=== PATIENT | male | born 1995 | race Caucasian/White ===

== ENCOUNTER 2021-10-27 12:50 | Inpatient (IN) ==
[2021-10-27 13:49] LABS: ABS Eosinophils 0.1 10^3/ul (0-0.6); ABS Lymphocytes 1.5 10^3/ul (1.0-4.8); ABS Monocytes 0.4 10^3/ul (0-0.8); ABS Neutrophils 3.3 10^3/ul (1.5-7.7); Eosinophil % 1.8 %; Hematocrit 44 % (42-52); Hemoglobin 14.8 g/dL (14.0-18.0); Lymphocyte % 27.9 %; Mean Corpuscular HGB Conc 34 g/dL (31-36); Mean Corpuscular Hemoglobin 28 pg (27-31); Mean Corpuscular Volume 84 fL (80-94); Mean Platelet Volume 9.5 fL (7.4-10.4); Nucleated Red Blood Cells % 0.1; Platelet Count 217 10^3/uL (150-450); Red Blood Count 5.26 10^6 /uL (4.18-5.48); Red Cell Distribution Width 13 % (10-15); White Blood Count 5.4 10^3/uL (3.5-10.8)
[2021-10-27 14:01] LABS: ALT 20 U/L (7-52); AST 15 U/L (13-39); Acetaminophen < 15 mcg/mL; Albumin 4.5 g/dL (3.2-5.2); Alcohol, S < 13 mg/dL (<13); Alkaline Phosphatase 46 U/L (35-149); Anion Gap 5 mmol/L (2-11); Blood Urea Nitrogen 8 mg/dL (6-24); CO2 Carbon Dioxide 29 mmol/L (22-32); Calcium 9.6 mg/dL (8.6-10.3); Chloride 105 mmol/L (101-111); Globulin 2.3 g/dL (2-4); Glucose 85 mg/dL (70-100); Potassium 3.8 mmol/L (3.5-5.0); Salicylate < 2.50 mg/dL (<30); Sodium 139 mmol/L (135-145); Total Protein 6.8 g/dL (6.4-8.9); eGFR CKD-EPI 122.3 (>60)
[2021-10-27 14:02] LABS: Urine Benzodiazepine Screen None Detected (None Detect); Urine Cannabinoids Screen None Detected (None Detect); Urine Opiates Screen None Detected (None Detect)
[2021-10-27 14:14] LABS: TSH Ultra Thyroid Stim Horm 0.59 mcIU/mL (0.34-5.60)
[2021-10-27 14:21] LABS: Valproic Acid < 13.0 mcg/mL (50-100)
[2021-10-27 14:59] LABS: Urine Appearance Clear; Urine Bilirubin Negative (Negative); Urine Blood Negative (Negative); Urine Color Yellow; Urine Glucose Negative (Negative); Urine Ketones Negative (Negative); Urine Nitrite Negative (Negative); Urine Protein Negative (Negative); Urine Specific Gravity 1.012 (1.002-1.030); Urine Urobilinogen Negative (Negative)
[2021-10-27] MEDS ORDERED: LORazepam 2 mg VIAL 1 ml IM ONE (16:25)
[2021-10-27] MEDS ORDERED: Lorazepam PYXIS KEY PRN (16:25)
[2021-10-27] MEDS ORDERED: Haloperidol 5 mg/ml SDV IV/IM 5 MG/ML AMP IM ONE (18:00)
[2021-10-27] MEDS ORDERED: diphenhydraMINE PO* 50 MG Q8H PRN AGITATION or INSOMNIA PO (19:31)
[2021-10-27] MEDS ORDERED: Al Hydrox/Mg Hydrox/Simet LIQ 30 ML UDC PO PRN (19:31)
[2021-10-28 08:23] LABS: HDL Cholesterol 32.4 mg/dL
[2021-10-28] MEDS: Vitamin THERAPEUTIC TAB PO SCH (11:17)
[2021-10-28] MEDS ORDERED: Albuterol HFA INHALER 8 gm MDI INH PRN (15:13)
[2021-10-28] MEDS: Buprenorphine 2 mg SL TAB SL SCH (16:18)
[2021-10-29] MEDS: Vitamin THERAPEUTIC TAB PO SCH (08:16)
[2021-10-29] MEDS: Amphetamine MIXED SALT 10mgTAB PO SCH (08:17)
[2021-10-29] MEDS: Buprenorphine 2 mg SL TAB SL SCH (08:18)
[2021-10-29] MEDS ORDERED: Ondansetron ODT 4 mg TAB 4 MG TAB ONE (08:26)
[2021-10-30] MEDS: Buprenorphine 2 mg SL TAB SL SCH (08:23)
[2021-10-30] MEDS: Vitamin THERAPEUTIC TAB PO SCH (08:24)
[2021-10-30] MEDS: Amphetamine MIXED SALT 10mgTAB PO SCH (08:24)
[2021-10-30] MEDS: Nicotine Lozenge mini 4 MG LOZNG.MINI MT PRN ×2 (13:00→23:20)
[2021-10-31] MEDS: Nicotine Lozenge mini 4 MG LOZNG.MINI MT PRN (03:53)
[2021-10-31] MEDS: Amphetamine MIXED SALT 10mgTAB PO SCH (07:29)
[2021-10-31] MEDS: Vitamin THERAPEUTIC TAB PO SCH (07:30)
[2021-10-31 07:47] VITALS: BP 109/63
[2021-10-31] MEDS: Buprenorphine 2 mg SL TAB SL SCH (07:48)
== END 2021-10-31 12:28 | disposition home or self-care (01) | DRG 750 ==
LOC: ED 12:50 → BSU 18:54
PROVIDERS: ADMIT Psychiatry & Neurology Addiction Psychiatry; ATTEND Student in an Organized Health Care Education/Training Program

== ENCOUNTER 2021-11-09 19:31 | Inpatient (IN) ==
[2021-11-09 21:21] LABS: Urine Appearance Clear; Urine Bilirubin Negative (Negative); Urine Blood Negative (Negative); Urine Color Yellow; Urine Glucose Negative (Negative); Urine Ketones Negative (Negative); Urine Nitrite Negative (Negative); Urine Protein Negative (Negative); Urine Specific Gravity 1.009 (1.002-1.030); Urine Urobilinogen Positive (Negative)
[2021-11-09 21:26] LABS: Urine Benzodiazepine Screen None Detected (None Detect); Urine Cannabinoids Screen None Detected (None Detect); Urine Opiates Screen None Detected (None Detect)
[2021-11-09] MEDS ORDERED: chlorproMAZINE TAB 50 MG Q6H PRN AGITATION PO (23:00)
[2021-11-09] MEDS ORDERED: Al Hydrox/Mg Hydrox/Simet LIQ 30 ML UDC PO PRN (23:14)
[2021-11-09] MEDS ORDERED: Albuterol HFA INHALER 8 gm MDI INH PRN (23:15)
[2021-11-10] MEDS: Vitamin THERAPEUTIC TAB PO SCH (10:46)
[2021-11-10] MEDS: Nicotine PATCH 21 MG/24 HR PATCH TRANSDERM SCH (10:47)
[2021-11-10] MEDS ORDERED: Albuterol HFA INHALER 8 gm MDI INH PRN (10:49)
[2021-11-11 07:59] LABS: ABS Eosinophils 0.1 10^3/ul (0-0.6); ABS Lymphocytes 2.1 10^3/ul (1.0-4.8); ABS Monocytes 0.4 10^3/ul (0-0.8); ABS Neutrophils 2.7 10^3/ul (1.5-7.7); Eosinophil % 2.2 %; Hematocrit 49 % (42-52); Hemoglobin 16.1 g/dL (14.0-18.0); Lymphocyte % 38.7 %; Mean Corpuscular HGB Conc 33 g/dL (31-36); Mean Corpuscular Hemoglobin 28 pg (27-31); Mean Corpuscular Volume 84 fL (80-94); Mean Platelet Volume 9.8 fL (7.4-10.4); Platelet Count 232 10^3/uL (150-450); Red Blood Count 5.79 10^6 /uL (4.18-5.48); Red Cell Distribution Width 13 % (10-15); White Blood Count 5.3 10^3/uL (3.5-10.8)
[2021-11-11 08:33] LABS: HDL Cholesterol 38.7 mg/dL
[2021-11-11 08:35] LABS: ALT 39 U/L (7-52); Acetaminophen < 15 mcg/mL; Albumin 4.5 g/dL (3.2-5.2); Albumin/Globulin Ratio 1.6 (1-3); Alcohol, S < 13 mg/dL (<13); Alkaline Phosphatase 53 U/L (35-149); Blood Urea Nitrogen 10 mg/dL (6-24); CO2 Carbon Dioxide 29 mmol/L (22-32); Calcium 9.5 mg/dL (8.6-10.3); Chloride 103 mmol/L (101-111); Globulin 2.9 g/dL (2-4); Glucose 91 mg/dL (70-100); Salicylate < 2.50 mg/dL (<30); Sodium 138 mmol/L (135-145); Total Protein 7.4 g/dL (6.4-8.9); eGFR CKD-EPI 128.2 (>60)
[2021-11-11 08:37] LABS: Anion Gap 6 mmol/L (2-11)
[2021-11-11 08:49] LABS: TSH Ultra Thyroid Stim Horm 0.21 mcIU/mL (0.34-5.60)
[2021-11-11 09:24] LABS: Potassium Redraw 4.5 mmol/L (3.5-5.0)
[2021-11-11] MEDS: Vitamin THERAPEUTIC TAB PO SCH (09:49)
[2021-11-11] MEDS: Nicotine PATCH 21 MG/24 HR PATCH TRANSDERM SCH (09:50)
[2021-11-11] MEDS: Nicotine GUM 2MG FRUIT FLAVOR PO PRN ×3 (12:07→16:30)
[2021-11-12] MEDS: Nicotine PATCH 21 MG/24 HR PATCH TRANSDERM SCH (07:30)
[2021-11-12] MEDS: Vitamin THERAPEUTIC TAB PO SCH (07:30)
[2021-11-12] MEDS: Nicotine GUM 2MG FRUIT FLAVOR PO PRN ×3 (07:39→18:03)
[2021-11-13] MEDS: Vitamin THERAPEUTIC TAB PO SCH (08:27)
[2021-11-13] MEDS: Nicotine PATCH 21 MG/24 HR PATCH TRANSDERM SCH ×2 (08:28→08:47)
[2021-11-13] MEDS: Nicotine GUM 2MG FRUIT FLAVOR PO PRN ×3 (08:48→18:16)
[2021-11-13] MEDS ORDERED: Paliperidone SUSTENNA 234 MG/1.5 ML IM ONE (10:09)
[2021-11-14] MEDS: Vitamin THERAPEUTIC TAB PO SCH (08:23)
[2021-11-14] MEDS: Nicotine PATCH 21 MG/24 HR PATCH TRANSDERM SCH (08:24)
[2021-11-14] MEDS: Nicotine GUM 2MG FRUIT FLAVOR PO PRN ×4 (08:27→21:07)
[2021-11-15] MEDS: Nicotine PATCH 21 MG/24 HR PATCH TRANSDERM SCH (08:22)
[2021-11-15] MEDS: Vitamin THERAPEUTIC TAB PO SCH (08:23)
[2021-11-15] MEDS: Nicotine GUM 2MG FRUIT FLAVOR PO PRN ×4 (08:29→19:07)
[2021-11-16 07:31] VITALS: BP 99/61
[2021-11-16] MEDS: Nicotine PATCH 21 MG/24 HR PATCH TRANSDERM SCH (08:19)
[2021-11-16] MEDS: Vitamin THERAPEUTIC TAB PO SCH (08:40)
[2021-11-16] MEDS ORDERED: Paliperidone SUSTENNA 156 MG/1 ML IM ONE (12:00)
[2021-11-16] MEDS: Nicotine GUM 2MG FRUIT FLAVOR PO PRN (13:15)
== END 2021-11-16 14:06 | disposition home or self-care (01) | DRG 750 ==
LOC: ED 19:31 → EDHOLD 22:00 → BSU 23:13
PROVIDERS: ADMIT Psychiatry & Neurology Psychiatry; ATTEND Psychiatry & Neurology Psychiatry

== ENCOUNTER 2022-05-20 20:48 | Inpatient (IN) ==
[2022-05-20] MEDS ORDERED: Vancomycin 1,000 MG in NS 0.9% 250 ml 250 ML IVPB ONE (23:17)
[2022-05-20 23:27] LABS: ABS Eosinophils 0.1 10^3/ul (0-0.6); ABS Lymphocytes 1.2 10^3/ul (1.0-4.8); ABS Neutrophils 4.4 10^3/ul (1.5-7.7); Eosinophil % 1.2 %; Hematocrit 36 % (42-52); Lymphocyte % 18.4 %; Mean Corpuscular HGB Conc 33 g/dL (31-36); Mean Corpuscular Hemoglobin 26 pg (27-31); Mean Corpuscular Volume 78 fL (80-94); Mean Platelet Volume 7.9 fL (7.4-10.4); Platelet Count 262 10^3/uL (150-450); Red Blood Count 4.66 10^6 /uL (4.18-5.48); Red Cell Distribution Width 16 % (10-15); White Blood Count 6.7 10^3/uL (3.5-10.8)
[2022-05-21 00:05] LABS: Albumin 3.6 g/dL (3.2-5.2); Albumin/Globulin Ratio 1.2 (1-3); C Reactive Protein 111.33 mg/L (<8.01); Calcium 8.7 mg/dL (8.6-10.3); Globulin 2.9 g/dL (2-4); Potassium 3.8 mmol/L (3.5-5.0); Total Bilirubin 0.4 mg/dL (0.2-1.0); Total Protein 6.5 g/dL (6.4-8.9); eGFR CKD-EPI 122.3 (>60)
[2022-05-21 01:19] LABS: Body Fluid WBC 49703 /mcL
[2022-05-21 01:26] LABS: Body Fluid Mono 1 %; Body Fluid Other Cells 1; Body Fluid Total Cells Counted 200
[2022-05-21 01:27] LABS: Body Fluid Color Red; Body Fluid Source Synovial Fluid
[2022-05-21 01:28] LABS: Body Fluid Appearance Bloody
[2022-05-21] MEDS ORDERED: NS 0.9% 1000 ml BAG 1,000 ML IV ONE (01:41)
[2022-05-21] MEDS ORDERED: Piperacillin/Tazobac ADVAN 3.375 GM in NS 0.9% 100 ml BAG 100 ML IV ONE (02:33)
[2022-05-21] MEDS ORDERED: Zosyn per Pharmacy NOTE FOLLOW UP SCH (03:00)
[2022-05-21] MEDS ORDERED: Vancomycin per Pharmacy 1 EA NOTE FOLLOW UP SCH (03:00)
[2022-05-21] MEDS: Acetaminophen IV 1 GM/100ML 1,000 MG/100 ML BAG IV SCH ×3 (03:20→22:18)
[2022-05-21] MEDS ORDERED: ZOSYN 3.375 GM Q8H per EXTENDED INFUSION IV SCH (07:30)
[2022-05-21] MEDS: ZOSYN 3.375 GM Q8H per EXTENDED INFUSION IV SCH ×3 (08:08→20:59)
[2022-05-21] MEDS ORDERED: Buffered Lidocaine 1% SYRIN 1 ml INTRADERM ONE (08:34)
[2022-05-21] MEDS ORDERED: Sodium Citrate/Citric Acid LIQ 15 ML UDC PO ONE (08:34)
[2022-05-21] MEDS ORDERED: Lactated Ringers 1000 ml BAG 1,000 ML IV SCH (09:00)
[2022-05-21] MEDS: Vancomycin 1,250 MG in NS 0.9% 250 ml 250 ML IVPB SCH ×3 (12:31→23:41)
[2022-05-21] MEDS ORDERED: Naloxone Nasal Spray 4 MG/0.1 ML NASAL.SPR INTRANASAL PRN (12:36)
[2022-05-21] MEDS ORDERED: Senna TAB 8.6 mg TAB PO PRN (12:37)
[2022-05-21] MEDS ORDERED: Polyethylene Glycol 3350 17 GM PACKET PO PRN (12:37)
[2022-05-21] MEDS ORDERED: Lidocaine 2% PF 5 ML VIAL ONE ×2 (12:55→13:35)
[2022-05-21] MEDS ORDERED: fentaNYL 100 mcg/2 ml 50 MCG/ML VIAL ONE ×2 (12:55→13:34)
[2022-05-21] MEDS ORDERED: Propofol 10 MG/ML 20 ML BTL ONE (12:55)
[2022-05-21] MEDS ORDERED: Midazolam 2 mg/2 ml VIAL 1 mg/ml 2 ml VIAL (2 mg) ONE ×2 (12:56→13:35)
[2022-05-21] MEDS ORDERED: Bupivacaine 0.5% SDV PF 30ML VIAL ONE (13:13)
[2022-05-21] MEDS ORDERED: Dexamethasone IV 4 MG/ML VIAL 1 ml VIAL ONE (14:20)
[2022-05-21] MEDS ORDERED: Ondansetron 4 mg VIAL 2 MG/ML 2 ml VIAL ONE (14:20)
[2022-05-21] MEDS ORDERED: Prochlorperazine 5 mg/ml 2 ml VIAL (10 mg) IV PRN (14:36)
[2022-05-21] MEDS ORDERED: Naloxone 0.4 mg VIAL 0.4 mg/ml 1 ml VIAL IV PRN (14:36)
[2022-05-21] MEDS ORDERED: fentaNYL 100 mcg/2 ml 50 MCG/ML VIAL IV PRN (14:36)
[2022-05-21] MEDS ORDERED: Ondansetron 4 mg VIAL 2 MG/ML 2 ml VIAL IV PRN (14:36)
[2022-05-21] MEDS ORDERED: Acetaminophen IV 1 GM/100ML 1,000 MG/100 ML BAG IV ONE (14:36)
[2022-05-21] MEDS ORDERED: HYDROmorphone 1 MG/1 ML SYRINGE IV SLOW PU ONE (20:32)
[2022-05-21 23:20] LABS: Hepatitis B Surface Antigen Nonreactive (Nonreactive)
[2022-05-21 23:26] LABS: HIV 4th Generation Nonreactive (Nonreactive)
[2022-05-21 23:26] LABS: Hepatitis A Ab IgM Negative (Negative)
[2022-05-21 23:27] LABS: Hepatitis B Core IgM Nonreactive (Nonreactive)
[2022-05-22 01:48] LABS: Hepatitis C Antibody Reactive (Negative)
[2022-05-22] MEDS: ZOSYN 3.375 GM Q8H per EXTENDED INFUSION IV SCH ×3 (05:36→20:50)
[2022-05-22] MEDS: Acetaminophen IV 1 GM/100ML 1,000 MG/100 ML BAG IV SCH ×3 (05:38→22:33)
[2022-05-22] MEDS ORDERED: Vancomycin Trough Check NOTE FOLLOW UP ONE (07:30)
[2022-05-22] MEDS: Nicotine PATCH 21 MG/24 HR PATCH TRANSDERM SCH (08:59)
[2022-05-22 09:08] LABS: ABS Eosinophils 0.1 10^3/ul (0-0.6); ABS Lymphocytes 1.3 10^3/ul (1.0-4.8); ABS Monocytes 1.1 10^3/ul (0-0.8); ABS Neutrophils 6.3 10^3/ul (1.5-7.7); Eosinophil % 0.8 %; Hematocrit 35 % (42-52); Hemoglobin 11.3 g/dL (14.0-18.0); Lymphocyte % 14.8 %; Mean Corpuscular HGB Conc 33 g/dL (31-36); Mean Corpuscular Hemoglobin 26 pg (27-31); Mean Corpuscular Volume 78 fL (80-94); Platelet Count 305 10^3/uL (150-450); Red Blood Count 4.41 10^6 /uL (4.18-5.48); Red Cell Distribution Width 16 % (10-15); White Blood Count 8.8 10^3/uL (3.5-10.8)
[2022-05-22 09:17] LABS: Albumin 3.4 g/dL (3.2-5.2); Calcium 8.6 mg/dL (8.6-10.3); Potassium 3.9 mmol/L (3.5-5.0); Total Bilirubin 0.4 mg/dL (0.2-1.0)
[2022-05-22 09:23] LABS: Albumin/Globulin Ratio 1.1 (1-3); Globulin 3.1 g/dL (2-4); Total Protein 6.5 g/dL (6.4-8.9); eGFR CKD-EPI 136.2 (>60)
[2022-05-22] MEDS: Vancomycin 1,250 MG in NS 0.9% 250 ml 250 ML IVPB SCH ×2 (10:33→16:58)
[2022-05-22] MEDS: Nicotine Lozenge mini 4 MG LOZNG.MINI MT PRN ×3 (10:38→20:48)
[2022-05-23] MEDS: Vancomycin 1,250 MG in NS 0.9% 250 ml 250 ML IVPB SCH ×2 (00:19→09:35)
[2022-05-23] MEDS: Acetaminophen IV 1 GM/100ML 1,000 MG/100 ML BAG IV SCH ×3 (05:57→23:35)
[2022-05-23] MEDS: ZOSYN 3.375 GM Q8H per EXTENDED INFUSION IV SCH ×2 (06:13→15:03)
[2022-05-23] MEDS: Nicotine Lozenge mini 4 MG LOZNG.MINI MT PRN ×2 (06:13→19:42)
[2022-05-23] MEDS ORDERED: Vancomycin Trough Check NOTE FOLLOW UP ONE (07:30)
[2022-05-23 08:20] LABS: ABS Basophils 0.1 10^3/ul (0-0.2); ABS Eosinophils 0.2 10^3/ul (0-0.6); ABS Lymphocytes 1.5 10^3/ul (1.0-4.8); ABS Monocytes 0.8 10^3/ul (0-0.8); ABS Neutrophils 6.8 10^3/ul (1.5-7.7); Eosinophil % 1.6 %; Hematocrit 35 % (42-52); Hemoglobin 11.1 g/dL (14.0-18.0); Lymphocyte % 15.9 %; Mean Corpuscular HGB Conc 32 g/dL (31-36); Mean Corpuscular Hemoglobin 25 pg (27-31); Mean Corpuscular Volume 79 fL (80-94); Mean Platelet Volume 7.5 fL (7.4-10.4); Platelet Count 343 10^3/uL (150-450); Red Blood Count 4.39 10^6 /uL (4.18-5.48); Red Cell Distribution Width 16 % (10-15); White Blood Count 9.4 10^3/uL (3.5-10.8)
[2022-05-23 08:49] LABS: Calcium 8.9 mg/dL (8.6-10.3); Potassium 4.5 mmol/L (3.5-5.0); eGFR CKD-EPI 137.7 (>60)
[2022-05-23] MEDS: Nicotine PATCH 21 MG/24 HR PATCH TRANSDERM SCH (08:56)
[2022-05-23] MEDS: Vancomycin 1000 MG in NS 0.9% 250 ML IVPB SCH ×2 (15:27→21:17)
[2022-05-23 19:18] LABS: C Reactive Protein 126.2 mg/L (<8.01)
[2022-05-23] MEDS: Senna TAB 8.6 mg TAB PO SCH (21:14)
[2022-05-24] MEDS: ZOSYN 3.375 GM Q8H per EXTENDED INFUSION IV SCH ×3 (00:12→15:45)
[2022-05-24] MEDS: Nicotine Lozenge mini 4 MG LOZNG.MINI MT PRN ×2 (00:13→22:04)
[2022-05-24] MEDS: Vancomycin 1000 MG in NS 0.9% 250 ML IVPB SCH ×5 (04:10→22:09)
[2022-05-24] MEDS: Acetaminophen IV 1 GM/100ML 1,000 MG/100 ML BAG IV SCH ×3 (06:00→22:31)
[2022-05-24 07:39] LABS: ABS Eosinophils 0.2 10^3/ul (0-0.6); ABS Lymphocytes 1.1 10^3/ul (1.0-4.8); ABS Monocytes 0.9 10^3/ul (0-0.8); ABS Neutrophils 6.5 10^3/ul (1.5-7.7); Eosinophil % 1.8 %; Hematocrit 35 % (42-52); Hemoglobin 11.5 g/dL (14.0-18.0); Lymphocyte % 12.5 %; Mean Corpuscular HGB Conc 33 g/dL (31-36); Mean Corpuscular Hemoglobin 26 pg (27-31); Mean Corpuscular Volume 79 fL (80-94); Mean Platelet Volume 7.6 fL (7.4-10.4); Platelet Count 378 10^3/uL (150-450); Red Blood Count 4.39 10^6 /uL (4.18-5.48); Red Cell Distribution Width 16 % (10-15); White Blood Count 8.6 10^3/uL (3.5-10.8)
[2022-05-24 08:08] LABS: Calcium 9.1 mg/dL (8.6-10.3); Potassium 4.5 mmol/L (3.5-5.0); eGFR CKD-EPI 132.9 (>60)
[2022-05-24] MEDS: Polyethylene Glycol 3350 17 GM PACKET PO SCH (09:28)
[2022-05-24] MEDS: Nicotine PATCH 21 MG/24 HR PATCH TRANSDERM SCH (09:38)
[2022-05-24 12:50] LABS: C Reactive Protein 151.81 mg/L (<8.01)
[2022-05-24] MEDS: Senna TAB 8.6 mg TAB PO SCH (22:28)
[2022-05-25] MEDS: Vancomycin 1000 MG in NS 0.9% 250 ML IVPB SCH ×4 (04:02→19:53)
[2022-05-25] MEDS: Acetaminophen IV 1 GM/100ML 1,000 MG/100 ML BAG IV SCH ×3 (06:02→22:26)
[2022-05-25 08:13] LABS: ABS Eosinophils 0.2 10^3/ul (0-0.6); ABS Lymphocytes 1.5 10^3/ul (1.0-4.8); ABS Monocytes 0.8 10^3/ul (0-0.8); ABS Neutrophils 3.8 10^3/ul (1.5-7.7); Eosinophil % 3.2 %; Hematocrit 32 % (42-52); Hemoglobin 10.6 g/dL (14.0-18.0); Mean Corpuscular HGB Conc 33 g/dL (31-36); Mean Corpuscular Hemoglobin 26 pg (27-31); Mean Corpuscular Volume 79 fL (80-94); Mean Platelet Volume 7.5 fL (7.4-10.4); Platelet Count 375 10^3/uL (150-450); Red Blood Count 4.06 10^6 /uL (4.18-5.48); Red Cell Distribution Width 16 % (10-15); White Blood Count 6.3 10^3/uL (3.5-10.8)
[2022-05-25] MEDS ORDERED: Vancomycin Trough Check NOTE FOLLOW UP ONE (08:30)
[2022-05-25 08:57] LABS: Vancomycin Trough 16.4 mcg/mL
[2022-05-25 08:58] LABS: Potassium 4.6 mmol/L (3.5-5.0)
[2022-05-25] MEDS: Nicotine PATCH 21 MG/24 HR PATCH TRANSDERM SCH (09:32)
[2022-05-25] MEDS: Polyethylene Glycol 3350 17 GM PACKET PO SCH (11:22)
[2022-05-25] MEDS ORDERED: HYDROmorphone 1 MG/1 ML SYRINGE ONE (14:16)
[2022-05-25] MEDS ORDERED: HYDROmorphone 1 MG/1 ML SYRINGE IV ONE (14:17)
[2022-05-25] MEDS ORDERED: Famotidine IV 10 MG/ML 2 ml VIAL (20 mg) ONE (14:18)
[2022-05-25] MEDS: Famotidine IV 10 MG/ML 2 ml VIAL (20 mg) IV ONE (14:20)
[2022-05-25] MEDS ORDERED: Bupivacaine 0.5% SDV PF 30ML VIAL ONE (14:31)
[2022-05-25] MEDS ORDERED: Midazolam 2 mg/2 ml VIAL 1 mg/ml 2 ml VIAL (2 mg) ONE (14:48)
[2022-05-25] MEDS ORDERED: Propofol 10 MG/ML 20 ML BTL ONE (14:58)
[2022-05-25] MEDS ORDERED: Lidocaine 2% PF 5 ML VIAL ONE (14:58)
[2022-05-25] MEDS ORDERED: Lactated Ringers 1000 ml BAG 1,000 ML IV SCH (15:00)
[2022-05-25] MEDS ORDERED: ceFAZolin VIAL VIAL ONE (15:23)
[2022-05-25] MEDS ORDERED: Dexamethasone IV 4 MG/ML VIAL 1 ml VIAL ONE (15:53)
[2022-05-25] MEDS ORDERED: Ondansetron 4 mg VIAL 2 MG/ML 2 ml VIAL ONE (15:53)
[2022-05-25] MEDS: Senna TAB 8.6 mg TAB PO SCH (19:37)
[2022-05-25] MEDS: ceFAZolin 1 GM in Dextrose 1 GM/50 ML BAG IVPB SCH (22:26)
[2022-05-26] MEDS: Vancomycin 1000 MG in NS 0.9% 250 ML IVPB SCH ×4 (02:09→19:45)
[2022-05-26] MEDS: ceFAZolin 1 GM in Dextrose 1 GM/50 ML BAG IVPB SCH ×2 (04:22→17:32)
[2022-05-26] MEDS: Acetaminophen IV 1 GM/100ML 1,000 MG/100 ML BAG IV SCH ×3 (05:13→22:16)
[2022-05-26 06:52] LABS: ABS Lymphocytes 0.8 10^3/ul (1.0-4.8); ABS Monocytes 0.9 10^3/ul (0-0.8); ABS Neutrophils 6.4 10^3/ul (1.5-7.7); Eosinophil % 0.1 %; Hematocrit 31 % (42-52); Hemoglobin 10.5 g/dL (14.0-18.0); Lymphocyte % 9.7 %; Mean Corpuscular HGB Conc 34 g/dL (31-36); Mean Corpuscular Hemoglobin 26 pg (27-31); Mean Corpuscular Volume 78 fL (80-94); Mean Platelet Volume 7.7 fL (7.4-10.4); Platelet Count 451 10^3/uL (150-450); Red Blood Count 4.05 10^6 /uL (4.18-5.48); Red Cell Distribution Width 16 % (10-15)
[2022-05-26 07:10] LABS: Calcium 8.8 mg/dL (8.6-10.3); Potassium 4.8 mmol/L (3.5-5.0); eGFR CKD-EPI 139.2 (>60)
[2022-05-26] MEDS: Polyethylene Glycol 3350 17 GM PACKET PO SCH (07:59)
[2022-05-26] MEDS: Nicotine PATCH 21 MG/24 HR PATCH TRANSDERM SCH (08:01)
[2022-05-26] MEDS: Nicotine Lozenge mini 4 MG LOZNG.MINI MT PRN (19:46)
[2022-05-26] MEDS: Senna TAB 8.6 mg TAB PO SCH (19:46)
[2022-05-27] MEDS: Vancomycin 1000 MG in NS 0.9% 250 ML IVPB SCH ×3 (01:05→13:40)
[2022-05-27] MEDS: Acetaminophen IV 1 GM/100ML 1,000 MG/100 ML BAG IV SCH ×3 (05:20→20:50)
[2022-05-27] MEDS: Nicotine PATCH 21 MG/24 HR PATCH TRANSDERM SCH (09:21)
[2022-05-27] MEDS: Polyethylene Glycol 3350 17 GM PACKET PO SCH (09:22)
[2022-05-27] MEDS: Nicotine Lozenge mini 4 MG LOZNG.MINI MT PRN ×2 (09:33→20:49)
[2022-05-27 11:04] LABS: ABS Basophils 0.1 10^3/ul (0-0.2); ABS Eosinophils 0.2 10^3/ul (0-0.6); ABS Lymphocytes 2.6 10^3/ul (1.0-4.8); ABS Neutrophils 4.7 10^3/ul (1.5-7.7); Eosinophil % 2.1 %; Hematocrit 35 % (42-52); Hemoglobin 11.5 g/dL (14.0-18.0); Lymphocyte % 30.4 %; Mean Corpuscular HGB Conc 33 g/dL (31-36); Mean Corpuscular Hemoglobin 26 pg (27-31); Mean Corpuscular Volume 79 fL (80-94); Mean Platelet Volume 7.4 fL (7.4-10.4); Platelet Count 440 10^3/uL (150-450); Red Blood Count 4.45 10^6 /uL (4.18-5.48); Red Cell Distribution Width 16 % (10-15); White Blood Count 8.6 10^3/uL (3.5-10.8)
[2022-05-27 11:56] LABS: C Reactive Protein 54.59 mg/L (<8.01); Calcium 9.4 mg/dL (8.6-10.3); Potassium 4.5 mmol/L (3.5-5.0)
[2022-05-27] MEDS ORDERED: Oritavancin 400 mg/40 mL Vial 1,200 MG in D5W 1000 ML BAG 880 ML IV ONE (16:30)
[2022-05-27] MEDS: Senna TAB 8.6 mg TAB PO SCH (20:49)
[2022-05-28] MEDS: Acetaminophen IV 1 GM/100ML 1,000 MG/100 ML BAG IV SCH (05:22)
[2022-05-28] MEDS ORDERED: Vancomycin Trough Check NOTE FOLLOW UP ONE (06:00)
[2022-05-28 08:22] LABS: ABS Eosinophils 0.2 10^3/ul (0-0.6); ABS Lymphocytes 1.9 10^3/ul (1.0-4.8); ABS Monocytes 0.9 10^3/ul (0-0.8); ABS Neutrophils 4.7 10^3/ul (1.5-7.7); Eosinophil % 2.4 %; Hematocrit 36 % (42-52); Hemoglobin 11.9 g/dL (14.0-18.0); Mean Corpuscular HGB Conc 33 g/dL (31-36); Mean Corpuscular Hemoglobin 26 pg (27-31); Mean Corpuscular Volume 79 fL (80-94); Mean Platelet Volume 7.2 fL (7.4-10.4); Platelet Count 466 10^3/uL (150-450); Red Blood Count 4.62 10^6 /uL (4.18-5.48); Red Cell Distribution Width 16 % (10-15); White Blood Count 7.8 10^3/uL (3.5-10.8)
[2022-05-28] MEDS: Polyethylene Glycol 3350 17 GM PACKET PO SCH (08:23)
[2022-05-28] MEDS: Nicotine PATCH 21 MG/24 HR PATCH TRANSDERM SCH (08:25)
[2022-05-28 09:06] LABS: Calcium 9.3 mg/dL (8.6-10.3); Vancomycin Trough 10.8 mcg/mL; eGFR CKD-EPI 126.1 (>60)
[2022-05-28 09:10] LABS: Potassium 5.1 mmol/L (3.5-5.0)
[2022-05-28 11:54] VITALS: BP 127/84
== END 2022-05-28 14:25 | disposition home or self-care (01) | DRG 315 ==
LOC: EDHOLD 20:48 → ED 20:48 → SUATTDRO 05-21 02:31 → SSU 05-21 04:06 → SUATTDRO 05-21 11:55 → SSU 05-24 16:36 → MEDTELE 05-25 22:01
PROVIDERS: ADMIT Internal Medicine; ATTEND Internal Medicine

== ENCOUNTER 2022-07-17 22:08 | Inpatient (IN) ==
[2022-07-17] MEDS ORDERED: Lactated Ringers 1000 ml BAG 1,000 ML IV ONE (22:18)
[2022-07-17 22:43] LABS: ABS Lymphocytes 0.6 10^3/ul (1.0-4.8); ABS Monocytes 0.7 10^3/ul (0-0.8); ABS Neutrophils 14.9 10^3/ul (1.5-7.7); Hematocrit 38 % (42-52); Hemoglobin 12.2 g/dL (14.0-18.0); Lymphocyte % 3.4 %; Mean Corpuscular HGB Conc 32 g/dL (31-36); Mean Corpuscular Hemoglobin 25 pg (27-31); Mean Corpuscular Volume 77 fL (80-94); Mean Platelet Volume 9.1 fL (7.4-10.4); Platelet Count 168 10^3/uL (150-450); Red Blood Count 4.87 10^6 /uL (4.18-5.48); Red Cell Distribution Width 16 % (10-15); White Blood Count 16.2 10^3/uL (3.5-10.8)
[2022-07-17 23:19] LABS: ALT 200 U/L (7-52); AST 144 U/L (13-39); Albumin 3.6 g/dL (3.2-5.2); Albumin/Globulin Ratio 1.2 (1-3); Alcohol, S < 13 mg/dL (<13); Alkaline Phosphatase 109 U/L (35-149); Anion Gap 7 mmol/L (2-11); Blood Urea Nitrogen 24 mg/dL (6-24); CO2 Carbon Dioxide 27 mmol/L (22-32); Calcium 7.9 mg/dL (8.6-10.3); Chloride 100 mmol/L (101-111); Creatinine, Serum 1.52 mg/dL (0.67-1.17); Globulin 2.9 g/dL (2-4); Glucose 92 mg/dL (70-100); Sodium 134 mmol/L (135-145); Total Protein 6.5 g/dL (6.4-8.9); eGFR CKD-EPI 63.6 (>60)
[2022-07-18] MEDS ORDERED: Iohexol 350 (CONTRAST) 500 ML MDV IV ONE (00:05)
[2022-07-18] MEDS ORDERED: Lactated Ringers 1000 ml BAG 1,000 ML IV ONE (00:49)
[2022-07-18] MEDS ORDERED: Vancomycin 1,500 MG in NS 0.9% 250 ml 250 ML IVPB ONE (02:09)
[2022-07-18] MEDS ORDERED: Piperacillin/Tazobac ADVAN 3.375 GM in NS 0.9% 100 ml BAG 100 ML IV ONE (02:09)
[2022-07-18 03:54] LABS: Magnesium 1.7 mg/dL (1.9-2.7); Phosphorus 4.8 mg/dL (2.5-5.0)
[2022-07-18] MEDS ORDERED: Vancomycin per Pharmacy 1 EA NOTE FOLLOW UP SCH (04:00)
[2022-07-18] MEDS ORDERED: Zosyn per Pharmacy NOTE FOLLOW UP SCH (04:00)
[2022-07-18] MEDS: NS 0.9% 1000 ml BAG 1,000 ML IV SCH ×3 (04:05→23:14)
[2022-07-18 04:11] LABS: Urine Appearance Clear; Urine Bilirubin Negative (Negative); Urine Blood Negative (Negative); Urine Color Yellow; Urine Glucose Negative (Negative); Urine Ketones Negative (Negative); Urine Nitrite Negative (Negative); Urine Protein Negative (Negative); Urine Specific Gravity 1.021 (1.002-1.030); Urine Urobilinogen Negative (Negative)
[2022-07-18] MEDS ORDERED: Magnesium Sulfate 2 gm BAG 2 GM/50 ML BAG IVPB ONE (04:33)
[2022-07-18 04:37] LABS: Urine Benzodiazepine Screen None Detected (None Detect); Urine Cannabinoids Screen None Detected (None Detect); Urine Opiates Screen None Detected (None Detect)
[2022-07-18 06:16] LABS: ABS Lymphocytes 1.3 10^3/ul (1.0-4.8); ABS Monocytes 0.8 10^3/ul (0-0.8); ABS Neutrophils 10.9 10^3/ul (1.5-7.7); Eosinophil % 0.1 %; Hematocrit 34 % (42-52); Hemoglobin 11.2 g/dL (14.0-18.0); Lymphocyte % 9.9 %; Mean Corpuscular HGB Conc 33 g/dL (31-36); Mean Corpuscular Hemoglobin 25 pg (27-31); Mean Corpuscular Volume 77 fL (80-94); Platelet Count 138 10^3/uL (150-450); Red Blood Count 4.44 10^6 /uL (4.18-5.48); Red Cell Distribution Width 16 % (10-15)
[2022-07-18 06:22] LABS: Hepatitis B Surface Antigen Nonreactive (Nonreactive)
[2022-07-18 06:27] LABS: Hepatitis A Ab IgM Negative (Negative)
[2022-07-18 06:28] LABS: Hepatitis B Core IgM Nonreactive (Nonreactive)
[2022-07-18] MEDS ORDERED: ZOSYN 3.375 GM Q8H per EXTENDED INFUSION IV SCH (06:30)
[2022-07-18 06:50] LABS: Creatinine, Serum 1.25 mg/dL (0.67-1.17); Magnesium 2.6 mg/dL (1.9-2.7); Potassium 3.5 mmol/L (3.5-5.0); eGFR CKD-EPI 80.4 (>60)
[2022-07-18] MEDS ORDERED: Potassium Chlor 20 meq TAB.ER PO ONE (08:17)
[2022-07-18] MEDS ORDERED: KCL 20 MEQ/100 ML IVPREMIX 20 MEQ/100 ML BAG IV ONE (08:17)
[2022-07-18 13:56] LABS: Hepatitis C Antibody Reactive (Negative)
[2022-07-18] MEDS: Vancomycin 1,750 MG in NS 0.9% 500 ml BAG 500 ML IVPB SCH (14:04)
[2022-07-18] MEDS: ZOSYN 3.375 GM Q8H per EXTENDED INFUSION IV SCH ×2 (16:15→23:18)
[2022-07-18] MEDS ORDERED: Ondansetron 4 mg VIAL 2 MG/ML 2 ml VIAL IV PRN (18:23)
[2022-07-18] MEDS ORDERED: Acetaminophen IV 1 GM/100ML 1,000 MG/100 ML BAG IV PRN (18:23)
[2022-07-19] MEDS: Vancomycin 1,750 MG in NS 0.9% 500 ml BAG 500 ML IVPB SCH ×2 (03:17→16:37)
[2022-07-19 05:36] LABS: ABS Eosinophils 0.1 10^3/ul (0-0.6); ABS Lymphocytes 1.6 10^3/ul (1.0-4.8); ABS Monocytes 0.6 10^3/ul (0-0.8); ABS Neutrophils 6.6 10^3/ul (1.5-7.7); Eosinophil % 1.2 %; Hematocrit 34 % (42-52); Lymphocyte % 17.7 %; Mean Corpuscular HGB Conc 32 g/dL (31-36); Mean Corpuscular Hemoglobin 25 pg (27-31); Mean Corpuscular Volume 79 fL (80-94); Mean Platelet Volume 9.3 fL (7.4-10.4); Platelet Count 122 10^3/uL (150-450); Red Blood Count 4.35 10^6 /uL (4.18-5.48); Red Cell Distribution Width 16 % (10-15); White Blood Count 8.9 10^3/uL (3.5-10.8)
[2022-07-19 06:20] LABS: Albumin 2.9 g/dL (3.2-5.2); Albumin/Globulin Ratio 1.3 (1-3); Calcium 7.9 mg/dL (8.6-10.3); Creatinine, Serum 0.8 mg/dL (0.67-1.17); Globulin 2.2 g/dL (2-4); Potassium 4.1 mmol/L (3.5-5.0); Total Bilirubin 0.6 mg/dL (0.2-1.0); Total Protein 5.1 g/dL (6.4-8.9); eGFR CKD-EPI 123.6 (>60)
[2022-07-19] MEDS: ZOSYN 3.375 GM Q8H per EXTENDED INFUSION IV SCH ×3 (07:35→23:41)
[2022-07-19] MEDS ORDERED: Vancomycin Trough Check NOTE FOLLOW UP ONE (13:30)
[2022-07-19] MEDS: Vancomycin 1,250 MG in NS 0.9% 250 ml 250 ML IVPB SCH (20:30)
[2022-07-20] MEDS: Vancomycin 1,250 MG in NS 0.9% 250 ml 250 ML IVPB SCH (03:54)
[2022-07-20] MEDS: ZOSYN 3.375 GM Q8H per EXTENDED INFUSION IV SCH (08:07)
[2022-07-20] MEDS ORDERED: Amphetamine MIXED SALT 10mgTAB PO SCH (12:00)
[2022-07-20] MEDS ORDERED: Midazolam 2 mg/2 ml VIAL 1 mg/ml 2 ml VIAL (2 mg) ONE (12:14)
[2022-07-20] MEDS ORDERED: Propofol 10 MG/ML 20 ML BTL ONE (13:15)
[2022-07-20 15:36] VITALS: BP 112/72
[2022-07-21] MEDS ORDERED: Vancomycin Trough Check NOTE FOLLOW UP ONE (11:30)
== END 2022-07-20 17:15 | disposition home or self-care (01) | DRG 720 ==
LOC: ED 22:08 → EDHOLD 07-18 03:19 → SUATTDRO 07-18 03:19 → ICU 07-18 10:52 → MED 07-19 13:33
PROVIDERS: ADMIT Surgery Surgical Critical Care; ATTEND Internal Medicine
PROC: O.CATEE (2022-07-20 13:15)

== ENCOUNTER 2022-10-27 10:37 | Inpatient (IN) ==
[2022-10-27] MEDS ORDERED: Ondansetron 4 mg VIAL 2 MG/ML 2 ml VIAL IV ONE (11:38)
[2022-10-27] MEDS ORDERED: NS 0.9% 1000 ml BAG 1,000 ML IV ONE ×3 (11:38→16:59)
[2022-10-27 12:09] LABS: Hematocrit 33.4 % (38-53); Hemoglobin 11.1 g/dL (13.2-16.3); Mean Corpuscular Hemoglobin 25.2 pg (27-33); Mean Corpuscular Hgb Conc 33.1 g/dL (31-36); Mean Platelet Volume 8.7 fL (7.5-11.2); Platelet Count 155 10^3/uL (150-450); Red Cell Distribution Width 15.9 % (12-17); White Blood Count 18.7 10^3/uL (3.6-10.2)
[2022-10-27 12:40] LABS: ALT 137 U/L (7-52); AST 115 U/L (13-39); Albumin 2.8 g/dL (3.2-5.2); Albumin/Globulin Ratio 1.4 (1-3); Alkaline Phosphatase 71 U/L (35-149); Anion Gap 7 mmol/L (2-16); Blood Urea Nitrogen 23 mg/dL (6-24); CO2 Carbon Dioxide 22 mmol/L (22-32); Chloride 106 mmol/L (101-111); Glucose 73 mg/dL (70-100); Potassium 3.4 mmol/L (3.5-5.0); Sodium 135 mmol/L (135-145); Total Protein 4.8 g/dL (6.4-8.9); eGFR CKD-EPI 118.6 (>60)
[2022-10-27 12:44] LABS: RBC Morphology Normal (Normal)
[2022-10-27 12:47] LABS: ABS Basophils 0.1 10^3/uL (0.0-0.1); ABS Lymphocytes 0.6 10^3/uL (1.0-4.8); ABS Monocytes 0.8 10^3/uL (0.0-1.1); ABS Neutrophils 17.3 10^3/uL (1.5-7.6); ABS Nucleated RBC 0.01 10^3/ul; Lymphocyte % 3.2 %; Nucleated Red Blood Cells % 0.1 /100 WBC (0.0-0.4)
[2022-10-27 13:09] LABS: Calcium 5.7 mg/dL (8.6-10.3)
[2022-10-27] MEDS ORDERED: Vancomycin 1,000 MG in NS 0.9% 250 ml 250 ML IVPB ONE (13:15)
[2022-10-27] MEDS ORDERED: Piperacillin/Tazobac ADVAN 3.375 GM in NS 0.9% 100 ml BAG 100 ML IV ONE (13:15)
[2022-10-27] MEDS ORDERED: Buprenorphine 2 mg SL TAB SL ONE (13:28)
[2022-10-27] MEDS ORDERED: CALCIUM GLUCONATE 1GM/50ML NS 1 GM/50 ML BAG IV ONE (16:20)
[2022-10-27] MEDS ORDERED: Potassium Chlor 20 meq TAB.ER PO ONE (16:23)
[2022-10-27 16:47] LABS: Magnesium 1.1 mg/dL (1.9-2.7); Phosphorus 4.5 mg/dL (2.5-5.0)
[2022-10-27] MEDS ORDERED: Magnesium Sulf 4 GM/100 ML IV 4,000 MG/100 ML BAG IVPB ONE (17:10)
[2022-10-27 17:14] LABS: Vitamin D Total 25(OH) 19.7 ng/mL (20-50)
[2022-10-27 17:20] LABS: Calcium (PTH Intact) 5.7 mg/dL (8.6-10.3)
[2022-10-27 17:36] LABS: Urine Appearance Clear; Urine Bilirubin Negative (Negative); Urine Blood Negative (Negative); Urine Color Straw; Urine Glucose Negative (Negative); Urine Ketones Negative (Negative); Urine Nitrite Negative (Negative); Urine Protein Negative (Negative); Urine Specific Gravity 1.004 (1.002-1.030); Urine Urobilinogen Negative (Negative)
[2022-10-27] MEDS ORDERED: Lactated Ringers 1000 ml BAG 1,000 ML IV SCH (18:00)
[2022-10-27] MEDS ORDERED: Zosyn per Pharmacy NOTE FOLLOW UP SCH (18:00)
[2022-10-27] MEDS ORDERED: Lactated Ringers 1000 ml BAG 1,000 ML IV ONE (18:07)
[2022-10-27 18:24] LABS: % Iron Saturation 9 % (15-55); .Transferrin 156 mg/dL (203-362); Iron < 20 ug/dL (50-212); Total Iron Binding Capacity 218 mcg/dL (250-450); Unsaturated Iron Binding 198 ug/dL
[2022-10-27 18:44] LABS: Ferritin 63.7 ng/mL (24-336)
[2022-10-27] MEDS: Buprenorphine 2 mg SL TAB SL SCH ×2 (18:47→21:18)
[2022-10-27 19:01] LABS: High Sensitivity Troponin 1 Hr 9 pg/mL (<20)
[2022-10-27] MEDS: ZOSYN 3.375 GM Q8H per EXTENDED INFUSION IV SCH (19:21)
[2022-10-27] MEDS: Lactated Ringers 1000 ml BAG 1,000 ML IV SCH (19:23)
[2022-10-27] MEDS: Nicotine PATCH 14 MG/24 HR PATCH TRANSDERM SCH (19:29)
[2022-10-27] MEDS: Cholecalciferol (VIT D3) 1,000 unit TAB PO SCH (19:29)
[2022-10-27] MEDS: Ondansetron 4 mg VIAL 2 MG/ML 2 ml VIAL IV PRN (21:15)
[2022-10-27 23:34] LABS: Calcium 7.6 mg/dL (8.6-10.3); Creatinine, Serum 1.03 mg/dL (0.67-1.17); Magnesium 2.7 mg/dL (1.9-2.7); Potassium 4.1 mmol/L (3.5-5.0); eGFR CKD-EPI 100.8 (>60)
[2022-10-28] MEDS: ZOSYN 3.375 GM Q8H per EXTENDED INFUSION IV SCH ×2 (03:35→11:53)
[2022-10-28] MEDS: Ondansetron 4 mg VIAL 2 MG/ML 2 ml VIAL IV PRN ×2 (03:54→11:51)
[2022-10-28] MEDS: Buprenorphine 2 mg SL TAB SL SCH (04:25)
[2022-10-28 07:06] LABS: ALT 116 U/L (7-52); Albumin 2.9 g/dL (3.2-5.2); Alkaline Phosphatase 85 U/L (35-149); Blood Urea Nitrogen 15 mg/dL (6-24); CO2 Carbon Dioxide 21 mmol/L (22-32); Calcium 7.9 mg/dL (8.6-10.3); Chloride 112 mmol/L (101-111); Creatinine, Serum 0.96 mg/dL (0.67-1.17); Globulin 2.8 g/dL (2-4); Glucose 135 mg/dL (70-100); Magnesium 2.3 mg/dL (1.9-2.7); Sodium 139 mmol/L (135-145); Total Protein 5.7 g/dL (6.4-8.9); eGFR CKD-EPI 109.7 (>60)
[2022-10-28] MEDS: Lactated Ringers 1000 ml BAG 1,000 ML IV SCH (07:06)
[2022-10-28] MEDS: Nicotine PATCH 14 MG/24 HR PATCH TRANSDERM SCH (07:52)
[2022-10-28] MEDS: Cholecalciferol (VIT D3) 1,000 unit TAB PO SCH (07:52)
[2022-10-28 08:19] LABS: Anion Gap 6 mmol/L (2-16)
[2022-10-28 09:23] LABS: ABS Monocytes 0.7 10^3/uL (0.0-1.1); ABS Neutrophils 11.2 10^3/uL (1.5-7.6); ABS Nucleated RBC 0.01 10^3/ul; Eosinophil % 0.1 %; Hemoglobin 11.6 g/dL (13.2-16.3); Lymphocyte % 7.4 %; Mean Corpuscular Volume 75.6 fL (80-97); Platelet Count 132 10^3/uL (150-450); Red Blood Count 4.62 10^6/uL (4.06-5.63); Red Cell Distribution Width 16.3 % (12-17); White Blood Count 12.9 10^3/uL (3.6-10.2)
[2022-10-28 10:02] LABS: Potassium Redraw 4.1 mmol/L (3.5-5.0)
[2022-10-28 11:03] VITALS: BP 125/55
== END 2022-10-28 13:24 | disposition left against medical advice (07) | DRG 720 ==
LOC: ED 10:37 → EDHOLD 16:42 → MEDTELE 20:46
PROVIDERS: ADMIT Internal Medicine; ATTEND Internal Medicine

== ENCOUNTER 2022-10-29 00:58 | Observation (INO) ==
[2022-10-29 01:53] LABS: ABS Lymphocytes 0.9 10^3/uL (1.0-4.8); ABS Monocytes 0.6 10^3/uL (0.0-1.1); ABS Neutrophils 9.6 10^3/uL (1.5-7.6); ABS Nucleated RBC 0.01 10^3/ul; Eosinophil % 0.2 %; Hematocrit 34.2 % (38-53); Hemoglobin 11.4 g/dL (13.2-16.3); Lymphocyte % 8.1 %; Mean Corpuscular Hemoglobin 25.4 pg (27-33); Mean Corpuscular Hgb Conc 33.4 g/dL (31-36); Mean Corpuscular Volume 75.9 fL (80-97); Mean Platelet Volume 9.1 fL (7.5-11.2); Nucleated Red Blood Cells % 0.1 /100 WBC (0.0-0.4); Platelet Count 143 10^3/uL (150-450); Red Blood Count 4.51 10^6/uL (4.06-5.63); Red Cell Distribution Width 16.2 % (12-17); White Blood Count 11.1 10^3/uL (3.6-10.2)
[2022-10-29 02:24] LABS: Activated Partial Thrombo Time 27.5 seconds (26.0-38.0); INR 1.18 (0.88-1.18)
[2022-10-29 02:26] LABS: Albumin 3.3 g/dL (3.2-5.2); CO2 Carbon Dioxide 22 mmol/L (22-32); Calcium 8.3 mg/dL (8.6-10.3); Chloride 102 mmol/L (101-111); Sodium 130 mmol/L (135-145)
[2022-10-29 02:32] LABS: ALT 94 U/L (7-52); Albumin/Globulin Ratio 1.1 (1-3); Alkaline Phosphatase 87 U/L (35-149); Blood Urea Nitrogen 10 mg/dL (6-24); Creatinine, Serum 0.91 mg/dL (0.67-1.17); Glucose 89 mg/dL (70-100); Total Protein 6.3 g/dL (6.4-8.9)
[2022-10-29] MEDS ORDERED: Piperacillin/Tazobac ADVAN 3.375 GM in NS 0.9% 100 ml BAG 100 ML IV ONE (02:44)
[2022-10-29] MEDS ORDERED: Vancomycin 1,000 MG in NS 0.9% 250 ml 250 ML IVPB ONE (02:44)
[2022-10-29] MEDS ORDERED: NS 0.9% 1000 ml BAG 2,000 ML IV ONE (02:45)
[2022-10-29 02:46] LABS: Anion Gap 6 mmol/L (2-16)
[2022-10-29] MEDS ORDERED: NS 0.9% 1000 ml BAG 1,000 ML IV SCH (06:00)
[2022-10-29] MEDS ORDERED: Zosyn per Pharmacy NOTE FOLLOW UP SCH (06:00)
[2022-10-29] MEDS ORDERED: Vancomycin per Pharmacy 1 EA NOTE FOLLOW UP SCH (06:00)
[2022-10-29] MEDS ORDERED: ZOSYN 3.375 GM Q8H per EXTENDED INFUSION IV SCH ×2 (07:30→15:30)
[2022-10-29] MEDS: Nicotine PATCH 21 MG/24 HR PATCH TRANSDERM SCH (08:11)
[2022-10-29] MEDS ORDERED: Vancomycin Trough Check NOTE FOLLOW UP ONE (09:30)
[2022-10-29] MEDS ORDERED: Vancomycin 1,250 MG in NS 0.9% 250 ml 250 ML IVPB SCH ×2 (10:00→18:00)
[2022-10-29] MEDS ORDERED: cefTRIAXone 1 gm/50 mL D5W 1 GM/50 ML BAG IV SCH (18:30)
[2022-10-29 18:53] LABS: Urine Appearance Clear; Urine Bilirubin Negative (Negative); Urine Blood Negative (Negative); Urine Color Colorless; Urine Glucose Negative (Negative); Urine Ketones Negative (Negative); Urine Nitrite Negative (Negative); Urine Protein Negative (Negative); Urine Specific Gravity 1.002 (1.002-1.030); Urine Urobilinogen Negative (Negative)
[2022-10-29] MEDS ORDERED: Azithromycin 500 mg/250 ml NS 500 MG/250 ML BAG IVPB SCH (20:00)
[2022-10-30] MEDS: Nicotine PATCH 21 MG/24 HR PATCH TRANSDERM SCH (08:12)
[2022-10-30] MEDS ORDERED: Nicotine GUM 4MG FRUIT FLAVOR PO PRN (08:16)
[2022-10-30] MEDS ORDERED: Vancomycin Trough Check NOTE FOLLOW UP ONE (09:30)
[2022-10-30 09:47] LABS: ABS Lymphocytes 0.9 10^3/uL (1.0-4.8); ABS Monocytes 0.5 10^3/uL (0.0-1.1); ABS Neutrophils 3.3 10^3/uL (1.5-7.6); ABS Nucleated RBC 0.01 10^3/ul; Eosinophil % 0.5 %; Hematocrit 42.1 % (38-53); Lymphocyte % 19.8 %; Mean Corpuscular Hemoglobin 25.4 pg (27-33); Mean Corpuscular Hgb Conc 33.2 g/dL (31-36); Mean Corpuscular Volume 76.5 fL (80-97); Nucleated Red Blood Cells % 0.2 /100 WBC (0.0-0.4); Platelet Count 215 10^3/uL (150-450); Red Cell Distribution Width 16.7 % (12-17); White Blood Count 4.8 10^3/uL (3.6-10.2)
[2022-10-30 10:12] LABS: Calcium 9.3 mg/dL (8.6-10.3); Creatinine, Serum 0.76 mg/dL (0.67-1.17); Potassium 4.3 mmol/L (3.5-5.0); eGFR CKD-EPI 124.8 (>60)
[2022-10-30 10:15] VITALS: BP 111/72
[2022-10-30] MEDS ORDERED: Amphetamine MIXED SALT 10mgTAB PO ONE (10:36)
== END 2022-10-30 13:09 | disposition home or self-care (01) ==
LOC: EDHOLD 00:58 → ED 00:58 → EDHOLD 15:06 → MEDTELE 15:09
PROVIDERS: ADMIT Hospitalist; ATTEND Hospitalist

== ENCOUNTER 2023-01-10 10:26 | Inpatient (IN) ==
[2023-01-10] MEDS ORDERED: Al Hydrox/Mg Hydrox/Simet LIQ 30 ML UDC PO PRN (12:26)
[2023-01-10] MEDS ORDERED: Albuterol HFA INHALER 8 gm MDI INH SCH (14:00)
[2023-01-10] MEDS ORDERED: Albuterol HFA INHALER 8 gm MDI INH PRN (14:00)
[2023-01-10] MEDS: Buprenorphine 2 mg SL TAB SL SCH ×2 (14:14→22:46)
[2023-01-10] MEDS ORDERED: Haloperidol 5 mg/ml SDV IV/IM 5 MG/ML AMP IM ONE ×3 (18:25→19:46)
[2023-01-10] MEDS ORDERED: Haloperidol 5 mg/ml SDV IV/IM 5 MG/ML AMP ONE ×2 (18:29→19:45)
[2023-01-10] MEDS ORDERED: LORazepam 2 mg VIAL 1 ml IM ONE (20:10)
[2023-01-10] MEDS ORDERED: LORazepam 2 mg VIAL 1 ml ONE ×2 (20:14→22:18)
[2023-01-10] MEDS ORDERED: Lorazepam PYXIS KEY PRN ×2 (20:30→22:20)
[2023-01-10] MEDS: Dexmedetomidine 1,000 MCG in NS 0.9% 250 ml 240 ML IV SCH (22:17)
[2023-01-10] MEDS ORDERED: LORazepam 2 mg VIAL 1 ml IV PUSH ONE (22:20)
[2023-01-10] MEDS: Sulfamethox/Trimethoprim DS TAB 800/160 mg PO SCH (22:46)
[2023-01-11] MEDS ORDERED: LORazepam 2 mg VIAL 1 ml IV PUSH PRN (00:37)
[2023-01-11] MEDS ORDERED: Lorazepam PYXIS KEY PRN (00:37)
[2023-01-11 01:54] LABS: ABS Lymphocytes 1.2 10^3/uL (1.0-4.8); ABS Monocytes 0.8 10^3/uL (0.0-1.1); ABS Neutrophils 6.7 10^3/uL (1.5-7.6); ABS Nucleated RBC 0.01 10^3/ul; Eosinophil % 0.4 %; Hematocrit 39.2 % (38-53); Lymphocyte % 13.9 %; Mean Corpuscular Hemoglobin 26.2 pg (27-33); Mean Corpuscular Hgb Conc 33.2 g/dL (31-36); Mean Corpuscular Volume 78.9 fL (80-97); Mean Platelet Volume 7.9 fL (7.5-11.2); Nucleated Red Blood Cells % 0.1 /100 WBC (0.0-0.4); Platelet Count 242 10^3/uL (150-450); Red Blood Count 4.96 10^6/uL (4.06-5.63); Red Cell Distribution Width 15.2 % (12-17); White Blood Count 8.8 10^3/uL (3.6-10.2)
[2023-01-11 01:59] LABS: Calcium 9.3 mg/dL (8.6-10.3); Potassium 4.6 mmol/L (3.5-5.0); Total Bilirubin 0.6 mg/dL (0.2-1.0)
[2023-01-11 02:05] LABS: Albumin/Globulin Ratio 1.2 (1-3); Creatinine, Serum 0.79 mg/dL (0.67-1.17); Globulin 3.4 g/dL (2-4); Total Protein 7.4 g/dL (6.4-8.9); eGFR CKD-EPI 123.3 (>60)
[2023-01-11 02:15] LABS: Urine Benzodiazepine Screen None Detected (None Detect); Urine Buprenorphine Screen None Detected (None Detect); Urine Cannabinoids Screen None Detected (None Detect); Urine Fentanyl Screen Presumptive Positive (None Detect); Urine Hydrocodone Screen None Detected (None Detect); Urine Opiates Screen None Detected (None Detect)
[2023-01-11] MEDS: LORazepam 2 mg VIAL 1 ml IV PUSH PRN ×4 (03:54→22:04)
[2023-01-11] MEDS ORDERED: chlorproMAZINE 25 MG/ML 2 ML (50 MG) IV PRN (08:19)
[2023-01-11] MEDS ORDERED: chlorproMAZINE INJ 25 MG in NS 0.9% 50 ML 50 ML IV PRN (09:44)
[2023-01-11] MEDS: Dexmedetomidine 1,000 MCG in NS 0.9% 250 ml 240 ML IV SCH (10:59)
[2023-01-11] MEDS: Enoxaparin 40 MG/0.4 ML SYR SUBCUT SCH (12:04)
[2023-01-11] MEDS ORDERED: chlorproMAZINE 25 MG/ML 2 ML (50 MG) IV ONE (14:22)
[2023-01-11] MEDS: Buprenorphine 2 mg SL TAB SL SCH ×3 (14:57→20:19)
[2023-01-11] MEDS ORDERED: chlorproMAZINE 25 MG/ML 2 ML (50 MG) IV SCH (15:00)
[2023-01-11] MEDS: chlorproMAZINE INJ 25 MG in NS 0.9% 50 ML 50 ML IV ONE ×2 (15:04→16:56)
[2023-01-11] MEDS: Sulfamethox/Trimethoprim DS TAB 800/160 mg PO SCH (15:56)
[2023-01-11] MEDS: chlorproMAZINE INJ 25 MG in NS 0.9% 50 ML 50 ML IV SCH ×2 (17:05→22:04)
[2023-01-11] MEDS ORDERED: chlorproMAZINE INJ 25 MG in NS 0.9% 50 ML 50 ML IV SCH (18:00)
[2023-01-11] MEDS ORDERED: Midazolam 2 mg/2 ml VIAL 1 mg/ml 2 ml VIAL (2 mg) IV SLOW PU ONE (18:31)
[2023-01-11] MEDS ORDERED: Midazolam 2 mg/2 ml VIAL 1 mg/ml 2 ml VIAL (2 mg) ONE (18:32)
[2023-01-11 19:43] LABS: Urine Appearance Cloudy; Urine Bilirubin Negative (Negative); Urine Blood Negative (Negative); Urine Color Yellow; Urine Glucose Negative (Negative); Urine Ketones Negative (Negative); Urine Nitrite Negative (Negative); Urine Protein Negative (Negative); Urine Specific Gravity 1.019 (1.002-1.030); Urine Urobilinogen Negative (Negative)
[2023-01-11 20:01] LABS: Urine Bacteria Absent (Absent); Urine Red Blood Cell Absent (Absent); Urine White Blood Cell Trace(0-5/hpf) (Absent)
[2023-01-12] MEDS: Dexmedetomidine 1,000 MCG in NS 0.9% 250 ml 240 ML IV SCH ×2 (00:35→12:34)
[2023-01-12] MEDS: chlorproMAZINE INJ 25 MG in NS 0.9% 50 ML 50 ML IV SCH ×4 (05:26→22:57)
[2023-01-12 08:13] LABS: ABS Eosinophils 0.1 10^3/uL (0.0-0.5); ABS Lymphocytes 0.9 10^3/uL (1.0-4.8); ABS Monocytes 0.6 10^3/uL (0.0-1.1); Eosinophil % 0.6 %; Hematocrit 43.1 % (38-53); Hemoglobin 14.3 g/dL (13.2-16.3); Lymphocyte % 9.5 %; Mean Corpuscular Hgb Conc 33.2 g/dL (31-36); Mean Corpuscular Volume 78.3 fL (80-97); Mean Platelet Volume 8.1 fL (7.5-11.2); Platelet Count 259 10^3/uL (150-450); Red Cell Distribution Width 15.6 % (12-17); White Blood Count 9.6 10^3/uL (3.6-10.2)
[2023-01-12 08:30] LABS: Calcium 9.5 mg/dL (8.6-10.3); Creatinine, Serum 0.7 mg/dL (0.67-1.17); Potassium 4.1 mmol/L (3.5-5.0); eGFR CKD-EPI 127.9 (>60)
[2023-01-12] MEDS: Buprenorphine 2 mg SL TAB SL SCH ×5 (12:18→21:18)
[2023-01-12] MEDS: Enoxaparin 40 MG/0.4 ML SYR SUBCUT SCH (12:39)
[2023-01-12] MEDS: LORazepam 2 mg VIAL 1 ml IV PUSH PRN ×2 (15:16→15:47)
[2023-01-12] MEDS ORDERED: LORazepam 2 mg VIAL 1 ml ONE (15:44)
[2023-01-12] MEDS ORDERED: LORazepam 2 mg VIAL 1 ml IV PUSH ONE (15:58)
[2023-01-13] MEDS: Dexmedetomidine 1,000 MCG in NS 0.9% 250 ml 240 ML IV SCH (00:37)
[2023-01-13] MEDS: LORazepam 2 mg VIAL 1 ml IV PUSH PRN ×2 (03:44→08:26)
[2023-01-13] MEDS: chlorproMAZINE INJ 25 MG in NS 0.9% 50 ML 50 ML IV SCH ×2 (05:49→11:06)
[2023-01-13] MEDS: Buprenorphine 2 mg SL TAB SL SCH ×3 (09:35→14:06)
[2023-01-13] MEDS ORDERED: NS 0.9% IV SCH (11:30)
[2023-01-13] MEDS ORDERED: CHLORPROMAZINE IV SCH (11:30)
[2023-01-13] MEDS: Enoxaparin 40 MG/0.4 ML SYR SUBCUT SCH (12:08)
[2023-01-13 13:39] VITALS: BP 102/62
[2023-01-13] MEDS ORDERED: Paliperidone SUSTENNA 156 MG/1 ML IM ONE (14:03)
== END 2023-01-13 15:30 | disposition home or self-care (01) | DRG 773 ==
LOC: ED 10:26 → EDHOLD 12:26 → BSU 13:56 → ICU 22:24
PROVIDERS: ADMIT Psychiatry & Neurology Psychiatry; ATTEND Internal Medicine Critical Care Medicine

== ENCOUNTER 2024-07-11 01:48 | Inpatient (IN) ==
[2024-07-11 03:35] LABS: ABS Eosinophils 0.1 10^3/uL (0.0-0.5); ABS Lymphocytes 1.5 10^3/uL (1.0-4.8); ABS Monocytes 0.4 10^3/uL (0.0-1.1); ABS Neutrophils 1.8 10^3/uL (1.5-7.6); ABS Nucleated RBC 0.01 10^3/ul; Eosinophil % 2.9 %; Hematocrit 40.4 % (38-53); Hemoglobin 13.6 g/dL (13.2-16.3); Lymphocyte % 38.6 %; Mean Corpuscular Hemoglobin 27.9 pg (27-33); Mean Corpuscular Hgb Conc 33.6 g/dL (31-36); Mean Platelet Volume 9.1 fL (7.5-11.2); Nucleated Red Blood Cells % 0.2 %/100WBC (0.0-0.8); Platelet Count 190 10^3/uL (150-450); Red Blood Count 4.87 10^6/uL (4.06-5.63); Red Cell Distribution Width 13.9 % (12-17); White Blood Count 3.8 10^3/uL (3.6-10.2)
[2024-07-11 04:09] LABS: ALT 9 U/L (7-52); AST 11 U/L (13-39); Acetaminophen < 15 mcg/mL; Albumin 4.3 g/dL (3.5-5.7); Albumin/Globulin Ratio 1.8 (1-3); Alcohol, S < 13 mg/dL (<13); Alkaline Phosphatase 50 U/L (35-149); Anion Gap 5 mmol/L (2-16); Blood Urea Nitrogen 10 mg/dL (6-24); CO2 Carbon Dioxide 29 mmol/L (22-32); Calcium 9.2 mg/dL (8.6-10.3); Chloride 103 mmol/L (101-111); Creatine Kinase 78 U/L (10-223); Creatinine, Serum 0.89 mg/dL (0.67-1.17); Globulin 2.4 g/dL (2-4); Glucose 96 mg/dL (70-100); Potassium 3.8 mmol/L (3.5-5.0); Salicylate < 2.50 mg/dL (<30); Sodium 137 mmol/L (135-145); Total Bilirubin 0.5 mg/dL (0.2-1.0); Total Protein 6.7 g/dL (6.4-8.9); eGFR CKD-EPI 118.2 (>60)
[2024-07-11 04:20] LABS: Urine Appearance Clear; Urine Bilirubin Negative (Negative); Urine Blood Negative (Negative); Urine Color Light-Yellow; Urine Glucose Negative (Negative); Urine Ketones Negative (Negative); Urine Nitrite Negative (Negative); Urine Protein Negative (Negative); Urine Specific Gravity 1.013 (1.002-1.030); Urine Urobilinogen Negative (Negative)
[2024-07-11 04:23] LABS: TSH Ultra Thyroid Stim Horm 3.08 mcIU/mL (0.34-5.60)
[2024-07-11 04:43] LABS: Urine Benzodiazepine Screen None Detected (None Detect); Urine Cannabinoids Screen None Detected (None Detect); Urine Opiates Screen None Detected (None Detect)
[2024-07-11] MEDS ORDERED: Al Hydrox/Mg Hydrox/Simet LIQ 30 ML UDC PO PRN (04:49)
[2024-07-11] MEDS: Vitamin THERAPEUTIC TAB PO SCH (14:57)
[2024-07-12] MEDS: Nicotine PATCH 14 MG/24 HR PATCH TRANSDERM SCH (13:09)
[2024-07-12] MEDS: Nicotine GUM 4MG FRUIT FLAVOR PO PRN (13:09)
[2024-07-13] MEDS: OLANZapine 10 mg TAB*ODT PO PRN (21:59)
[2024-07-14 09:15] VITALS: BP 117/76
== END 2024-07-14 13:38 | disposition home or self-care (01) | DRG 750 ==
LOC: ED 01:48 → EDHOLD 04:43 → BSU 05:25
PROVIDERS: ADMIT Psychiatry & Neurology Psychiatry; ATTEND Psychiatry & Neurology Psychiatry